=== PATIENT | female | born 1965 | race American Indian/Alaskan Native ===

== ENCOUNTER 2017-09-30 01:59 | Emergency (ER) | payer OTHER ==
--- NOTE | 2017-09-30 07:42 | Emergency Department Report ---
ED General Adult HPI - General Chief complaint: Medical Clearance Stated complaint: MEDICATION REFILL Time Seen by Provider: 09/30/17 07:26 Source: patient Mode of arrival: Ambulatory Limitations: No Limitations - History of Present Illness -: Gradual (here for med refill only; sees [facility]; she lost insuramce) - Related Data Previous Rx's Medication Instructions Recorded Last Taken Type Hydrochlorothiazide [HCTZ] 25 mg PO QDAY #30 tablet 09/30/17 Unknown Rx Lisinopril [Zestril] 20 mg PO DAILY #30 tablet 09/30/17 Unknown Rx glipiZIDE [glipiZIDE XL] 10 mg PO BID #60 tab.er.24 09/30/17 Unknown Rx metFORMIN XR [Glucophage XR] 1,000 mg PO BID #60 tablet 09/30/17 Unknown Rx Allergies Allergy/AdvReac Type Severity Reaction Status Date / Time No Known Allergies Allergy Unverified 11/12/14 10:29 ED Review of Systems ROS: Stated complaint: MEDICATION REFILL Other details as noted in HPI Comment: here for meds only. no problems ED Past Medical Hx - Past Medical History Previous Medical History?: Yes Hx Hypertension: Yes (since 2004) Hx Diabetes: Yes (since 2004) - Social History Smoking Status: Never Smoker - Medications Home Medications: Home Medications Medication Instructions Recorded Confirmed Last Taken Type Hydrochlorothiazide [HCTZ] 25 mg PO QDAY #30 tablet 09/30/17 Unknown Rx Lisinopril [Zestril] 20 mg PO DAILY #30 tablet 09/30/17 Unknown Rx glipiZIDE [glipiZIDE XL] 10 mg PO BID #60 tab.er.24 09/30/17 Unknown Rx metFORMIN XR [Glucophage XR] 1,000 mg PO BID #60 tablet 09/30/17 Unknown Rx ED Physical Exam - General Limitations: No Limitations General appearance: alert - Head Head exam: Present: atraumatic - Eye Eye exam: Present: PERRL Pupils: Present: normal accommodation - ENT ENT exam: Present: mucous membranes moist - Neck Neck exam: Present: normal inspection - Respiratory Respiratory exam: Present: normal lung sounds bilaterally - Cardiovascular Cardiovascular Exam: Present: regular rate - GI/Abdominal GI/Abdominal exam: Present: soft - Rectal Rectal exam: Present: deferred - Extremities Exam Extremities exam: Present: normal inspection - Back Exam Back exam: Present: normal inspection - Neurological Exam Neurological exam: Present: alert, oriented X3, CN II-XII intact, normal gait - Psychiatric Psychiatric exam: Present: normal affect, normal mood - Skin Skin exam: Present: warm, dry ED Course Vital Signs 09/30/17 09/30/17 02:52 03:17 Temperature 97.8 F 97.8 F Pulse Rate 93 H 93 H Respiratory 18 18 Rate Blood Pressure 132/70 132/70 O2 Sat by Pulse 100 98 Oximetry - Reevaluation(s) Reevaluation #1: 09/30/17 07:40 125/78 no bearden no cp no sob med refill only neuro intact reliable to follow up Reevaluation #2: 09/30/17 07:45 bs 278 ED Medical Decision Making - Medical Decision Making see note - Differential Diagnosis med refill Critical care attestation.: If time is entered above; I have spent that time in minutes in the direct care of this critically ill patient, excluding procedure time. ED Disposition Clinical Impression: Hypertension, Diabetes, Medication refill Disposition: DC- TO HOME OR SELFCARE Is pt being admited?: No Does the pt Need Aspirin: No Condition: Stable Instructions: Hypertension (ED), Diabetes Mellitus Type 2 in Adults (ED) Additional Instructions: blood sugar 278- need to see md referrals below bp good continue diabetic diet Referrals: PRIMARY CAREMD [Primary Care Provider] - 3-5 Days [facility] [Outside] - 3-5 Days [facility] [Outside] - 3-5 Days [facility] [Outside] - 3-5 Days [facility] [Outside] - 3-5 Days [facility] [Outside] - 3-5 Days [facility] [Outside] - 3-5 Days [facility] [Outside] - 3-5 Days YOHANA MARINELLI MD [Staff Physician] - 3-5 Days Time of Disposition: 07:42
[2017-09-30 07:53] VITALS: BP 131/72
== END 2017-09-30 07:52 | disposition home or self-care (01) ==
LOC: ED 01:59
DX: Z76.0 Encounter for issue of repeat prescription (principal); I10 Essential (primary) hypertension; E11.9 Type 2 diabetes mellitus without complications
CPT/HCPCS: 82962; 99282

== ENCOUNTER 2019-11-26 09:17 | Emergency (ER) | payer BC, MEDICAID ==
[2019-11-26 09:25] VITALS: BP 146/99
--- NOTE | 2019-11-26 10:10 | XRay Report ---
CHEST 2 VIEWS INDICATION / CLINICAL INFORMATION: SOB, cough. COMPARISON: None available. FINDINGS: SUPPORT DEVICES: None. HEART / MEDIASTINUM: No significant abnormality. LUNGS / PLEURA: No significant pulmonary or pleural abnormality. No pneumothorax. ADDITIONAL FINDINGS: No significant additional findings. IMPRESSION: No acute findings. Signer Name: Tarik Ahuja MD Signed: 11/26/2019 10:06 AM Workstation Name: [id number]
[2019-11-26] MEDS ORDERED: BENZONATATE 100 MG CAP PO ONE (11:38)
[2019-11-26] MEDS ORDERED: IBUPROFEN 800 MG TAB PO ONE (11:38)
--- NOTE | 2019-11-26 11:56 | Emergency Department Report ---
Upper Respiratory HPI - HPI Chief Complaint: Upper Respiratory Infection Stated Complaint: COUGHING Time Seen by Provider: 11/26/19 11:17 Duration: 1 week URI Symptoms: Rhinorrhea: Yes, Sore Throat: No, Ear Pain: No, Cough: Yes, Shortness of Breath: No, Sick Contacts: No, Unable to Take Fluids: No, Urine Output Abnormal: No, Listless Behavior: No Other History: This is a 54-year-old female nontoxic, well nourished in appearance, no acute signs of distress presents to the ED with c/o of productive cough, fever, chills, body aches, frontal sinus pain, rhinorrhea, nasal congestion x1 week. Patient describes productive cough as yellow mucus production. Patient denies any sick contacts. Patient denies any recent travels, long car, recent hospital stays. Patient denies any calf pain or calf tenderness. Patient denies any chest pain, short of breath, nausea, vomiting, hemoptysis, numbness, tingling, headache or stiff neck. Patient denies any allergies. - Home Meds and Allergies Home Medications: Previous Rx's Medication Instructions Recorded Last Taken Type Lisinopril [Zestril] 20 mg PO DAILY #30 tablet 09/30/17 Unknown Rx glipiZIDE [glipiZIDE XL] 10 mg PO BID #60 tab.er.24 09/30/17 Unknown Rx hydroCHLOROthiazide [HCTZ] 25 mg PO QDAY #30 tablet 09/30/17 Unknown Rx metFORMIN XR [Glucophage XR] 1,000 mg PO BID #60 tablet 09/30/17 Unknown Rx Amoxicillin [Amoxicillin TAB] 875 mg PO BID #14 tablet 07/04/18 Unknown Rx Fluticasone [Flonase] 2 spray NS QDAY #1 bottle 07/04/18 Unknown Rx traMADoL [Ultram] 50 mg PO Q6HR PRN #20 tablet 07/04/18 Unknown Rx Amoxicillin/K Clav Tab [Augmentin 1 tab PO Q12HR #20 tab 11/26/19 Unknown Rx 875 mg] Benzonatate [Tessalon Perles] 100 mg PO Q8HR PRN #20 capsule 11/26/19 Unknown Rx Ibuprofen [Motrin] 600 mg PO Q8H PRN #20 tablet 11/26/19 Unknown Rx Allergies/Adverse Reactions: Allergies Allergy/AdvReac Type Severity Reaction Status Date / Time No Known Allergies Allergy Unverified 11/12/14 10:29 ED Review of Systems ROS: Stated complaint: COUGHING Other details as noted in HPI Constitutional: chills, fever Eyes: denies: eye pain, eye discharge, vision change ENT: congestion. denies: ear pain, throat pain Respiratory: cough. denies: shortness of breath, wheezing Cardiovascular: denies: chest pain, palpitations Endocrine: no symptoms reported Gastrointestinal: denies: abdominal pain, nausea, diarrhea Genitourinary: denies: urgency, dysuria, discharge Musculoskeletal: denies: back pain, joint swelling, arthralgia Skin: denies: rash, lesions Neurological: denies: headache, weakness, paresthesias Psychiatric: denies: anxiety, depression Hematological/Lymphatic: denies: easy bleeding, easy bruising ED Past Medical Hx - Past Medical History Previous Medical History?: Yes Hx Hypertension: Yes (since 2004) Hx Diabetes: Yes (since 2004) - Surgical History Past Surgical History?: No - Social History Smoking Status: Never Smoker - Medications Home Medications: Home Medications Medication Instructions Recorded Confirmed Last Taken Type Lisinopril [Zestril] 20 mg PO DAILY #30 tablet 09/30/17 Unknown Rx glipiZIDE [glipiZIDE XL] 10 mg PO BID #60 tab.er.24 09/30/17 Unknown Rx hydroCHLOROthiazide [HCTZ] 25 mg PO QDAY #30 tablet 09/30/17 Unknown Rx metFORMIN XR [Glucophage XR] 1,000 mg PO BID #60 tablet 09/30/17 Unknown Rx Amoxicillin [Amoxicillin TAB] 875 mg PO BID #14 tablet 07/04/18 Unknown Rx Fluticasone [Flonase] 2 spray NS QDAY #1 bottle 07/04/18 Unknown Rx traMADoL [Ultram] 50 mg PO Q6HR PRN #20 tablet 07/04/18 Unknown Rx Amoxicillin/K Clav Tab [Augmentin 1 tab PO Q12HR #20 tab 11/26/19 Unknown Rx 875 mg] Benzonatate [Tessalon Perles] 100 mg PO Q8HR PRN #20 capsule 11/26/19 Unknown Rx Ibuprofen [Motrin] 600 mg PO Q8H PRN #20 tablet 11/26/19 Unknown Rx ED Bronchiolitis Physical Exam - Exam General: Vital signs noted. No distress. Alert and acting appropriately. Neurologic: Alert and oriented, no deficits. Musculoskeletal: Unremarkable. ED Bronchiolitis Tests - Testing Testing: CXR: Normal/Negative ED Physical Exam - General Limitations: No Limitations General appearance: alert, in no apparent distress - Head Head exam: Present: atraumatic, normocephalic, other (positive frontal sinus tenderness) - Eye Eye exam: Present: normal appearance - ENT ENT exam: Present: normal exam, normal orophraynx - Neck Neck exam: Present: normal inspection, full ROM. Absent: tenderness, meningismus, lymphadenopathy - Respiratory Respiratory exam: Present: normal lung sounds bilaterally. Absent: respiratory distress, wheezes, rales, rhonchi, stridor, chest wall tenderness, accessory muscle use, decreased breath sounds, prolonged expiratory - Cardiovascular Cardiovascular Exam: Present: regular rate, normal rhythm, tachycardia, normal heart sounds. Absent: bradycardia, irregular rhythm, systolic murmur, diastolic murmur, rubs, gallop - Extremities Exam Extremities exam: Present: normal inspection, full ROM - Back Exam Back exam: Present: normal inspection, full ROM. Absent: tenderness, CVA tenderness (R), CVA tenderness (L), muscle spasm, paraspinal tenderness, vertebral tenderness, rash noted - Neurological Exam Neurological exam: Present: alert, oriented X3, normal gait - Psychiatric Psychiatric exam: Present: normal affect, normal mood - Skin Skin exam: Present: warm, dry, intact, normal color. Absent: rash ED Course Vital Signs 11/26/19 09:25 Temperature 99.3 F Pulse Rate 117 H Respiratory 18 Rate Blood Pressure 146/99 [Right] O2 Sat by Pulse 98 Oximetry - Reevaluation(s) Reevaluation #1: 11/26/19 11:55 Patient is speaking in full sentences with no signs of distress noted. ED Medical Decision Making - Medical Decision Making This is a 54-year-old female that presents with influenza and sinusitis. Patient is stable and was examined by me. Chest x-ray has been obtained prior to me seeing the patient and dictated by radiologist with normal exam. Patient is notified of x-ray results with no questions noted. Will treat with augmentin. Patient was instructed to increase hydration, rest and take Motrin for fever episodes. Patient received motrin and tesslone perrls in the ED. Vitals stable. Patient is nonfebrile and normal heart rate. Patient was instructed Follow-up with a primary care doctor in 3-5 days or if symptoms worsen and continue return to emergency room as soon as possible. At time time of discharge, the patient does not seem toxic or ill in appearance. No acute signs of distress noted. Patient agrees to discharge treatment plan of care. No further questions noted by the patient. Critical care attestation.: If time is entered above; I have spent that time in minutes in the direct care of this critically ill patient, excluding procedure time. ED Disposition Clinical Impression: Influenza Sinusitis Qualifiers: Sinusitis location: frontal Chronicity: acute Recurrence: non-recurrent Qualified Code(s): J01.10 - Acute frontal sinusitis, unspecified Disposition: - TO HOME OR SELFCARE Is pt being admited?: No Does the pt Need Aspirin: No Condition: Stable Instructions: Sinusitis (ED), Fever in Adults (ED), Influenza (ED) Additional Instructions: Follow-up with a primary care doctor in 3-5 days or if symptoms worsen and continue return to emergency room as soon as possible. Increased rest, hydration, and take Motrin/Tylenol as prescribed for fever episode. Prescriptions: Amoxicillin/K Clav Tab [Augmentin 875 mg] 1 tab PO Q12HR #20 tab Ibuprofen [Motrin] 600 mg PO Q8H PRN #20 tablet PRN Reason: Pain Benzonatate [Tessalon Perles] 100 mg PO Q8HR PRN #20 capsule PRN Reason: Cough Referrals: PRIMARY CAREMD [Referring] - 3-5 Days TERESA MELENDEZ MD [Staff Physician] - 3-[address] [facility] [Outside] - 3-5 Days Forms: Work/School Release Form(ED)
== END 2019-11-26 12:47 | disposition home or self-care (01) ==
LOC: ED 09:17
DX: J11.1 Influenza due to unidentified influenza virus with other respiratory manifestations (principal); J32.9 Chronic sinusitis, unspecified; I10 Essential (primary) hypertension; E11.9 Type 2 diabetes mellitus without complications; Z79.1 Long term (current) use of non-steroidal anti-inflammatories (NSAID); Z79.2 Long term (current) use of antibiotics; Z79.899 Other long term (current) drug therapy
CPT/HCPCS: 71046

== ENCOUNTER 2021-07-12 17:58 | Emergency (ER) | payer MEDICAID, OTHER ==
--- NOTE | 2021-07-12 21:32 | Emergency Department Report ---
ED ENT HPI - General Chief complaint: Dental/Oral Stated complaint: LEFT FACE PAIN/TOOTH PAIN Time Seen by Provider: 07/12/21 20:52 Source: patient Mode of arrival: Ambulatory Limitations: No Limitations - History of Present Illness Initial comments: 56 year-old male female [facility] emerge department complaining of left facial pain discomfort from the sinus cavity and suspicion for nasal infection or dental infection. Pain is worse with palpation and certain certain positions and certain positions. She reports no discharge no fever, chills, sweats no chest pain palpitation no change in taste pain in is dull and throbbing in nature MD complaint: tooth pain Location: tooth # Severity: moderate Quality: aching, dull Consistency: constant Improves with: none Worsens with: none Context- Dental: history of dental caries, poor dental care Associated Symptoms: toothache. denies: pain with swallowing, sore throat, tinnitus, discharge from ear, rhinorrhea - Related Data Previous Rx's Medication Instructions Recorded Last Taken Type Lisinopril [Zestril] 20 mg PO DAILY #30 tablet 09/30/17 Unknown Rx glipiZIDE [glipiZIDE XL] 10 mg PO BID #60 tab.er.24 09/30/17 Unknown Rx hydroCHLOROthiazide [HCTZ] 25 mg PO QDAY #30 tablet 09/30/17 Unknown Rx metFORMIN XR [Glucophage XR] 1,000 mg PO BID #60 tablet 09/30/17 Unknown Rx Amoxicillin [Amoxicillin TAB] 875 mg PO BID #14 tablet 07/04/18 Unknown Rx Fluticasone [Flonase] 2 spray NS QDAY #1 bottle 07/04/18 Unknown Rx traMADoL [Ultram] 50 mg PO Q6HR PRN #20 tablet 07/04/18 Unknown Rx Amoxicillin/K Clav Tab [Augmentin 1 tab PO Q12HR #20 tab 11/26/19 Unknown Rx 875 mg] Benzonatate [Tessalon Perles] 100 mg PO Q8HR PRN #20 capsule 11/26/19 Unknown Rx Ibuprofen [Motrin] 600 mg PO Q8H PRN #20 tablet 11/26/19 Unknown Rx Amoxicillin [Amoxicillin TAB] 875 mg PO BID #20 tablet 07/12/21 Unknown Rx Ketorolac [Toradol] 10 mg PO Q6H PRN #15 tablet 07/12/21 Unknown Rx traMADoL [Ultram] 50 mg PO Q6HR PRN #20 tablet 07/12/21 Unknown Rx Allergies Allergy/AdvReac Type Severity Reaction Status Date / Time azithromycin Allergy Vomiting Verified 07/12/21 20:41 ED Dental HPI - General Chief complaint: Dental/Oral Stated complaint: LEFT FACE PAIN/TOOTH PAIN Time Seen by Provider: 07/12/21 20:52 Source: patient Mode of arrival: Ambulatory Limitations: No Limitations - Related Data Previous Rx's Medication Instructions Recorded Last Taken Type Lisinopril [Zestril] 20 mg PO DAILY #30 tablet 09/30/17 Unknown Rx glipiZIDE [glipiZIDE XL] 10 mg PO BID #60 tab.er.24 09/30/17 Unknown Rx hydroCHLOROthiazide [HCTZ] 25 mg PO QDAY #30 tablet 09/30/17 Unknown Rx metFORMIN XR [Glucophage XR] 1,000 mg PO BID #60 tablet 09/30/17 Unknown Rx Amoxicillin [Amoxicillin TAB] 875 mg PO BID #14 tablet 07/04/18 Unknown Rx Fluticasone [Flonase] 2 spray NS QDAY #1 bottle 07/04/18 Unknown Rx traMADoL [Ultram] 50 mg PO Q6HR PRN #20 tablet 07/04/18 Unknown Rx Amoxicillin/K Clav Tab [Augmentin 1 tab PO Q12HR #20 tab 11/26/19 Unknown Rx 875 mg] Benzonatate [Tessalon Perles] 100 mg PO Q8HR PRN #20 capsule 11/26/19 Unknown Rx Ibuprofen [Motrin] 600 mg PO Q8H PRN #20 tablet 11/26/19 Unknown Rx Amoxicillin [Amoxicillin TAB] 875 mg PO BID #20 tablet 07/12/21 Unknown Rx Ketorolac [Toradol] 10 mg PO Q6H PRN #15 tablet 07/12/21 Unknown Rx traMADoL [Ultram] 50 mg PO Q6HR PRN #20 tablet 07/12/21 Unknown Rx Allergies Allergy/AdvReac Type Severity Reaction Status Date / Time azithromycin Allergy Vomiting Verified 07/12/21 20:41 ED Review of Systems ROS: Stated complaint: LEFT FACE PAIN/TOOTH PAIN Other details as noted in HPI Comment: All other systems reviewed and negative ED Past Medical Hx - Past Medical History Hx Hypertension: Yes (since 2004) Hx Diabetes: Yes (since 2004) - Social History Smoking Status: Never Smoker - Medications Home Medications: Home Medications Medication Instructions Recorded Confirmed Last Taken Type Lisinopril [Zestril] 20 mg PO DAILY #30 tablet 09/30/17 Unknown Rx glipiZIDE [glipiZIDE XL] 10 mg PO BID #60 tab.er.24 09/30/17 Unknown Rx hydroCHLOROthiazide [HCTZ] 25 mg PO QDAY #30 tablet 09/30/17 Unknown Rx metFORMIN XR [Glucophage XR] 1,000 mg PO BID #60 tablet 09/30/17 Unknown Rx Amoxicillin [Amoxicillin TAB] 875 mg PO BID #14 tablet 07/04/18 Unknown Rx Fluticasone [Flonase] 2 spray NS QDAY #1 bottle 07/04/18 Unknown Rx traMADoL [Ultram] 50 mg PO Q6HR PRN #20 tablet 07/04/18 Unknown Rx Amoxicillin/K Clav Tab [Augmentin 1 tab PO Q12HR #20 tab 11/26/19 Unknown Rx 875 mg] Benzonatate [Tessalon Perles] 100 mg PO Q8HR PRN #20 capsule 11/26/19 Unknown Rx Ibuprofen [Motrin] 600 mg PO Q8H PRN #20 tablet 11/26/19 Unknown Rx Amoxicillin [Amoxicillin TAB] 875 mg PO BID #20 tablet 07/12/21 Unknown Rx Ketorolac [Toradol] 10 mg PO Q6H PRN #15 tablet 07/12/21 Unknown Rx traMADoL [Ultram] 50 mg PO Q6HR PRN #20 tablet 07/12/21 Unknown Rx ED Physical Exam - General Limitations: No Limitations General appearance: alert, in no apparent distress - Head Head exam: Present: atraumatic, normocephalic - Eye Eye exam: Present: normal appearance, PERRL, EOMI Pupils: Present: normal accommodation - ENT ENT exam: Present: mucous membranes moist, TM's normal bilaterally, other (Tenderness to the maxillary sinus on the left side with percussion and some swelling to the left turbinate no erythema. Some mild tenderness to the left molar region but no adjacent erythema or swelling no redness noted.) - Neck Neck exam: Present: normal inspection, full ROM - Respiratory Respiratory exam: Present: normal lung sounds bilaterally. Absent: respiratory distress - Cardiovascular Cardiovascular Exam: Present: regular rate, normal rhythm. Absent: systolic murmur, diastolic murmur, rubs, gallop - GI/Abdominal GI/Abdominal exam: Present: soft, normal bowel sounds - Extremities Exam Extremities exam: Present: normal inspection - Back Exam Back exam: Present: normal inspection - Neurological Exam Neurological exam: Present: alert, oriented X3 - Psychiatric Psychiatric exam: Present: normal affect, normal mood - Skin Skin exam: Present: warm, dry, intact, normal color. Absent: rash Critical care attestation.: If time is entered above; I have spent that time in minutes in the direct care of this critically ill patient, excluding procedure time. ED Disposition Clinical Impression: Dentalgia, Sinusitis Disposition: HOME / SELF CARE / HOMELESS Is pt being admited?: No Does the pt Need Aspirin: No Condition: Stable Instructions: How to Perform a Sinus Rinse, [id number], Sinus Headache, Sinusitis, Adult Prescriptions: Amoxicillin [Amoxicillin TAB] 875 mg PO BID #20 tablet Ketorolac [Toradol] 10 mg PO Q6H PRN #15 tablet PRN Reason: Pain traMADoL [Ultram] 50 mg PO Q6HR PRN #20 tablet PRN Reason: Pain Referrals: [facility] [Provider Group] - 3-5 Days
== END 2021-07-12 22:22 | disposition home or self-care (01) ==
LOC: ED 17:58
DX: K08.89 Other specified disorders of teeth and supporting structures (principal); J32.9 Chronic sinusitis, unspecified; I10 Essential (primary) hypertension; E11.8 Type 2 diabetes mellitus with unspecified complications; Z88.1 Allergy status to other antibiotic agents
CPT/HCPCS: 99282

== ENCOUNTER 2021-10-07 11:30 | Outpatient (CLI) | payer OTHER ==
--- NOTE | 2021-10-07 14:37 | XRay Report ---
LUMBAR SPINE 3 VIEWS INDICATION: BACK PAIN COMPARISON: None. FINDINGS: No acute, displaced fracture is seen. Alignment is within normal limits. There is moderate to advanced disc space narrowing at L5-S1. Disc space height is otherwise maintaine d. Lower lumbar facet arthropathy is noted. 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 CONCLUSION: 1. No acute findings. 2. Degenerative changes, as above. Signer Name: Romeo Ponce MD Signed: 10/07/2021 2:33 PM Workstation Name: [id number]
== END 2021-10-07 11:31 | disposition home or self-care (01) ==
LOC: XRAY 11:30
PROVIDERS: ATTEND Internal Medicine
DX: M47.816 Spondylosis without myelopathy or radiculopathy, lumbar region (principal); I10 Essential (primary) hypertension; E11.9 Type 2 diabetes mellitus without complications; M48.061 Spinal stenosis, lumbar region without neurogenic claudication
CPT/HCPCS: 72100